=== PATIENT | female | born 1980 | race Caucasian/White ===

== ENCOUNTER 2020-04-06 09:30 | Emergency (ER) | payer OTHER ==
[~2020-04-06] VITALS: Ht 160 cm; Wt 65.8 kg
== END 2020-04-06 13:46 | disposition home or self-care (01) ==
LOC: ER 09:30
DX: R51 Headache (principal); R11.2 Nausea with vomiting, unspecified; R05 Cough; Z88.5 Allergy status to narcotic agent
CPT/HCPCS: 81000; 81025; 96374; 96375; 96376; 99284-25; J1885; J2405; J7030